=== PATIENT | male | born 1970 ===

== ENCOUNTER 2025-03-26 07:00 | Day surgery (SDC) | payer OTHER ==
[2025-03-26] MEDS ORDERED: fentaNYL CITRATE 50 MCG/ML AMPUL IV PUSH ONE (11:45)
[2025-03-26] MEDS ORDERED: MIDAZOLAM HCL 2 MG/2 ML VIAL IV ONE (11:45)
[2025-03-26] MEDS ORDERED: DIPHENHYDRAMINE HCL 50 MG/ML VIAL 1ML IV ONE (11:45)
== END 2025-03-26 13:20 | disposition home or self-care (01) ==
LOC: AMB-ENDOS 07:00
PROVIDERS: ATTEND Internal Medicine
DX: K31.7 Polyp of stomach and duodenum (principal); K44.9 Diaphragmatic hernia without obstruction or gangrene; K29.60 Other gastritis without bleeding